=== PATIENT | male | born 1990 | race American Indian/Alaskan Native ===

== ENCOUNTER 2017-12-06 16:08 | Emergency (ER) | payer MEDICAID ==
[2017-12-06 16:17] VITALS: PULSE 58; RESP 17; TEMP 98.2; O2SAT 97
[2017-12-06] MEDS ORDERED: Bacitracin OINT 15GM TOP STA (16:23)
--- NOTE | 2017-12-06 17:14 | ED PDOC ---
Upper Extremity Pain/Injury Time Seen by Provider: 12/06/17 16:14 Chief Complaint (Nursing): Upper Extremity Problem/Injury Chief Complaint (Provider): Left hand wound History Per: Patient History/Exam Limitations: no limitations Onset/Duration Of Symptoms: Mins (prior to arrival) Current Symptoms Are (Timing): Still Present Additional Complaint(s): 27 year old male presents to the emergency department complaining of a wound on his left hand, which occurred prior to arrival. He states that earlier today he poked himself with a knife on his left hand trying to open a bottle, and after feeling pain to his thumb and index finger, came into the ED. Patient denies being up to date with tetanus shot. PMD: none provided Past Medical History Reviewed: Historical Data, Nursing Documentation, Vital Signs Vital Signs: Last Vital Signs Temp 98.2 F 12/06/17 16:12 Pulse 58 L 12/06/17 16:12 Resp 17 12/06/17 16:12 BP Pulse Ox 97 12/06/17 16:12 - Medical History PMH: Asthma - Surgical History Surgical History: Hernia Repair Other surgeries: adenoidectomy - Family History Family History: States: Unknown Family Hx - Social History Current smoker - smoking cessation education provided: No Alcohol: Social Drugs: Denies - Home Medications Home Medications: Ambulatory Orders Medication Instructions Recorded traMADol [Ultram] 50 mg PO TID PRN #12 tab 02/19/16 - Allergies Allergies/Adverse Reactions: Allergies Allergy/AdvReac Type Severity Reaction Status Date / Time banana Allergy mouth Verified 02/18/16 17:02 pilling briggs Allergy SWELLING Verified 02/18/16 17:02 shellfish derived Allergy SWELLING Verified 02/18/16 17:02 FISH AdvReac SWELLING Verified 02/18/16 17:02 Review of Systems ROS Statement: Except As Marked, All Systems Reviewed And Found Negative Musculoskeletal: Positive for: Hand Pain (left handed knife wound, pain in thumb and index finger) Physical Exam - Reviewed Nursing Documentation Reviewed: Yes Vital Signs Reviewed: Yes - Physical Exam Extremity: Positive for: Normal ROM (actively of all fingers on left hand), Other (Small superficial puncture wound on first interdigital web space with no bleeding) - ECG O2 Sat by Pulse Oximetry: 97 (RA) Pulse Ox Interpretation: Normal Medical Decision Making Medical Decision Making: Initial Impression: puncture wound Time: 16:23 Initial Plan: --Bacitracin Ointment 1 application TOP 16:30 Tetanus shot is not up to date, but refused booster despite being given the risks. Pt accepts risks. Wound was irrigated and cleansed. Scribe Attestation: Documented by Olga Hogue, acting as a scribe for Romero Ascencio PA-C Provider Scribe Attestation: All medical entries made by the Scribe were at my direction and personally dictated by me. I have reviewed the chart and agree that the record accurately reflects my personal performance of the history, physical exam, medical decision making, and the department course for this patient. I have also personally directed, reviewed, and agree with the discharge instructions and disposition. Disposition - Clinical Impression Clinical Impression: Puncture wound - Patient ED Disposition Is Patient to be Admitted: No - Disposition Referrals: [facility] [place] [Outside] [facility] [Outside] Disposition: Routine/Home Disposition Time: 16:30 Condition: STABLE Additional Instructions: Follow up with [facility] for further evaluation Return to ED immediately if symptoms worsen Instructions: Wound Care (DC) Forms: to be (Canadian) Print Language: SERBIAN
== END 2017-12-06 16:45 | disposition home or self-care (01) ==
LOC: H.ER 16:08
DX: S61.012A Laceration without foreign body of left thumb without damage to nail, initial encounter (principal); W26.0XXA Contact with knife, initial encounter; Y92.89 Other specified places as the place of occurrence of the external cause

== ENCOUNTER 2018-03-06 12:41 | Emergency (ER) | payer MEDICAID, OTHER ==
[2018-03-06] MEDS ORDERED: Sodium Chloride 0.9% 1,000 ML IV STA (13:16)
--- NOTE | 2018-03-06 13:21 | ED PDOC ---
HPI: Abdomen Time Seen by Provider: 03/06/18 12:56 Chief Complaint (Nursing): Abdominal Pain Chief Complaint (Provider): Abdominal pain History Per: Patient History/Exam Limitations: no limitations Additional Complaint(s): Pt reports sharp lower abdominal pain X 1 day, associated with L testicular pain and difficulty urinating. Denies fever, nausea, vomiting, constipation, diarrhea, hematuria, penile discharge. Past Medical History Reviewed: Nursing Documentation, Vital Signs Vital Signs: Last Vital Signs Temp 97.2 F L 03/06/18 17:37 Pulse 70 03/06/18 17:37 Resp 16 03/06/18 17:37 BP 120/71 03/06/18 17:37 Pulse Ox 99 03/06/18 17:37 - Medical History PMH: Asthma - Surgical History Surgical History: Hernia Repair - Family History Family History: States: Unknown Family Hx - Social History Current smoker - smoking cessation education provided: No Alcohol: None - Home Medications Home Medications: Ambulatory Orders Medication Instructions Recorded traMADol [Ultram] 50 mg PO TID PRN #12 tab 02/19/16 Naproxen [Naprosyn] 500 mg PO BID PRN #15 tablet 03/06/18 - Allergies Allergies/Adverse Reactions: Allergies Allergy/AdvReac Type Severity Reaction Status Date / Time banana Allergy mouth Verified 02/18/16 17:02 pilling briggs Allergy SWELLING Verified 02/18/16 17:02 shellfish derived Allergy SWELLING Verified 02/18/16 17:02 FISH AdvReac SWELLING Verified 02/18/16 17:02 Review of Systems Constitutional: Negative for: Fever, Chills Cardiovascular: Negative for: Chest Pain, Palpitations Respiratory: Negative for: Cough, Shortness of Breath Gastrointestinal: Positive for: Abdominal Pain. Negative for: Nausea, Vomiting , Diarrhea, Constipation Genitourinary Male: Positive for: Scrotal Pain. Negative for: Dysuria, Frequency, Incontinence, Hematuria, Penile Discharge, Penile Pain Musculoskeletal: Negative for: Neck Pain, Back Pain Skin: Negative for: Rash, Lesions Neurological: Negative for: Headache Physical Exam - Reviewed Nursing Documentation Reviewed: Yes Vital Signs Reviewed: Yes - Physical Exam Appears: Positive for: Uncomfortable Head Exam: Positive for: ATRAUMATIC, NORMAL INSPECTION Skin: Positive for: Normal Color, Warm, Dry Eye Exam: Positive for: Normal appearance, EOMI, PERRL Cardiovascular/Chest: Positive for: Regular Rate, Rhythm Respiratory: Positive for: Normal Breath Sounds Gastrointestinal/Abdominal: Positive for: Bowel Sounds, Soft, Tenderness (LLQ), Guarding. Negative for: Distended, Rebound Male Genital Exam: Positive for: testicular tenderness (L), other (Photo Finish Photographer: Toyin RAE). Negative for: bleeding, erythema, lesions, testicular tenderness (R), urethral discharge Extremity: Positive for: Normal ROM Neurologic/Psych: Positive for: Alert, Oriented - Laboratory Results Result Diagrams: 03/06/18 13:25 03/06/18 13:25 - ECG O2 Sat by Pulse Oximetry: 98 Medical Decision Making Medical Decision Makin yo male with LLQ?L testicular pain. - labs - CT abd/pelvis - testicular ultrasound - IVF - Morphine Accession No. : [id number] Patient Name / ID : HE CARREON / [id number] Exam Date : 03/06/2018 14:30:08 ( Approved ) Study Comment : Sex / Age : M / 27Y Creator : Jf Martinez MD Dictator : Jf Martinez MD Machine Overhauler : Vacuum Filter Operator : Jf Martinez MD Approver2 : Report Date : 03/06/2018 15:10:38 My Comment : Date of service: 03/06/2018 HISTORY: L testicular pain TECHNIQUE: Realtime sonography through the scrotum with color and doppler flow. COMPARISON: None Available. FINDINGS: RIGHT TESTICLE: Measures 3.6 x 2.3 x 1.9 cm. Normal echotexture and flow. Multiple punctate calcifications. RIGHT EPIDIDYMIS: Epididymal head measures 0.8 x 0.8 x 0.8 cm. Grossly unremarkable appearance with normal flow. LEFT TESTICLE: Measures 4.4 x 2.9 x 2.1 cm. Normal echotexture and flow. Multiple punctate calcifications. LEFT EPIDIDYMIS: Epididymal head measures 1.1 x 1.1 x 0.8 cm. Grossly unremarkable appearance with normal flow. HYDROCELE: None. VARICOCELE: None. OTHER FINDINGS: None. IMPRESSION: No evidence of testicular torsion. Symmetric bilateral Doppler flow. Bilateral testicular microlithiasis. Accession No. : [id number] Patient Name / ID : HE CARREON / [id number] Exam Date : 03/06/2018 16:32:25 ( Approved ) Study Comment : Sex / Age : M / 27Y Creator : Jf Martinez MD Dictator : Jf Martinez MD Machine Overhauler : Vacuum Filter Operator : Jf Martinez MD Approver2 : Report Date : 03/06/2018 16:56:45 My Comment : Date of service: 03/06/2018 PROCEDURE: CT Abdomen and Pelvis without intravenous contrast HISTORY: LLQ pain, testicular pain COMPARISON: None. TECHNIQUE: Contiguous images were obtained from the domes of the diaphragms to the upper thighs without the administration of intravenous contrast. Oral contrast was not administered. Radiation dose: Total exam DLP = 466.9 mGy-cm. This CT exam was performed using one or more of the following dose reduction techniques: Automated exposure control, adjustment of the mA and/or kV according to patient size, and/or use of iterative reconstruction technique. FINDINGS: LOWER THORAX: Unremarkable. LIVER: Unremarkable. No gross lesion or ductal dilatation. GALLBLADDER AND BILE DUCTS: Unremarkable. PANCREAS: Unremarkable. No gross lesion or ductal dilatation. SPLEEN: Unremarkable. ADRENALS: Unremarkable. No mass. KIDNEYS AND URETERS: Distension of the left renal collecting system and ureter. No hydronephrosis. No solid mass. VASCULATURE: Unremarkable. No aortic aneurysm. BOWEL: Unremarkable. No obstruction. No gross mural thickening. APPENDIX: Unremarkable. Normal appendix. PERITONEUM: Unremarkable. No free fluid. No free air. LYMPH NODES: Unremarkable. No enlarged lymph nodes. BLADDER: 3 mm calculus in the dependent bladder, slightly to the left. REPRODUCTIVE: Unremarkable. BONES: No acute fracture. OTHER FINDINGS: None. IMPRESSION: 3 mm calculus in the dependent bladder, slightly distal left with mild distention of the left renal collecting system and ureter compatible with recently passed calculus. Disposition - Clinical Impression Clinical Impression: Ureteral calculus - Disposition Referrals: [facility] [Outside] Rayna Do MD [Medical Doctor] - Disposition: Routine/Home Disposition Time: 17:01 Condition: STABLE Prescriptions: Naproxen [Naprosyn] 500 mg PO BID PRN #15 tablet PRN Reason: Pain, Moderate (4-7) Instructions: Kidney Stones in Adults, Renal Colic Forms: [facility] (Lithuanian)
[2018-03-06 13:40] LABS: BASO % 0.6 % (0.0-2.0); EOS # 0.8 K/uL (0.0-0.7); EOS % 13.2 % (0.0-4.0); HEMOGLOBIN 14.3 g/dL (12.0-18.0); LYMPH # 2.2 K/uL (1.0-4.3); LYMPH % 34.7 % (20.0-40.0); MEAN CELL VOLUME 84.7 fl (80.0-94.0); MEAN CORPUSCULAR HEMOGLOBIN 27.9 pg (27.0-31.0); MEAN PLATELET VOLUME 7.5 fl (7.2-11.7); MONO # 0.3 K/uL (0.0-0.8); MONO % 5.4 % (0.0-10.0); NEUT # 2.9 K/uL (1.8-7.0); NEUT % 46.1 % (50.0-75.0); NRBC % 0.1 % (0.0-0.0); RBC 5.11 Mil/uL (4.40-5.90); RED CELL DISTRIBUTION WIDTH 14.2 % (11.5-14.5); WHITE BLOOD COUNT 6.4 K/uL (4.8-10.8)
[2018-03-06 13:46] LABS: INR 1.1; PROTHROMBIN TIME 12.1 Seconds (9.8-13.1)
[2018-03-06 13:48] LABS: PARTIAL THROMBOPLASTIN TIME 27.7 Seconds (25.6-37.1)
[2018-03-06 13:49] LABS: ALB/GLOB RATIO 1.3 (1.0-2.1); ALBUMIN 4.2 g/dL (3.5-5.0); ALT/SGPT 26 U/L (21-72); AST/SGOT 21 U/L (17-59); BLOOD UREA NITROGEN 13 mg/dl (9-20); CALCIUM 9.6 mg/dL (8.4-10.2); GFR AFRICAN-AMERICAN > 60; GFR NON-AFRICAN AMERICAN > 60
[2018-03-06] MEDS ORDERED: Iohexol 300 100 ML IJ ONE (14:08)
[2018-03-06] MEDS ORDERED: Sodium Chloride 0.9% 50 ML IV ONE (14:08)
[2018-03-06 14:42] LABS: URINE BACTERIA RARE (<OCC); URINE BILIRUBIN NEGATIVE (NEGATIVE); URINE BLOOD LARGE (NEGATIVE); URINE CALCIUM OXALATE CRYSTALS RARE /hpf (<OCC); URINE CLARITY SLIGHTY-CLOUDY (Clear); URINE COLOR YELLOW (YELLOW); URINE GLUCOSE (UA) NEG (Normal); URINE LEUKOCYTE ESTERASE NEG Leu/uL (Negative); URINE PROTEIN 30 mg/dL (NEGATIVE); URINE UROBILINOGEN 0.2-1.0 mg/dL (0.2-1.0)
--- NOTE | 2018-03-06 15:11 | US ---
Date of service: 03/06/2018 HISTORY: L testicular pain TECHNIQUE: Realtime sonography through the scrotum with color and doppler flow. COMPARISON: None Available. FINDINGS: RIGHT TESTICLE: Measures 3.6 x 2.3 x 1.9 cm. Normal echotexture and flow. Multiple punctate calcifications. RIGHT EPIDIDYMIS: Epididymal head measures 0.8 x 0.8 x 0.8 cm. Grossly unremarkable appearance with normal flow. LEFT TESTICLE: Measures 4.4 x 2.9 x 2.1 cm. Normal echotexture and flow. Multiple punctate calcifications. LEFT EPIDIDYMIS: Epididymal head measures 1.1 x 1.1 x 0.8 cm. Grossly unremarkable appearance with normal flow. HYDROCELE: None. VARICOCELE: None. OTHER FINDINGS: None. IMPRESSION: No evidence of testicular torsion. Symmetric bilateral Doppler flow. Bilateral testicular microlithiasis.
--- NOTE | 2018-03-06 16:58 | CT ---
Date of service: 03/06/2018 PROCEDURE: CT Abdomen and Pelvis without intravenous contrast HISTORY: LLQ pain, testicular pain COMPARISON: None. TECHNIQUE: Contiguous images were obtained from the domes of the diaphragms to the upper thighs without the administration of intravenous contrast. Oral contrast was not administered. Radiation dose: Total exam DLP = 466.9 mGy-cm. This CT exam was performed using one or more of the following dose reduction techniques: Automated exposure control, adjustment of the mA and/or kV according to patient size, and/or use of iterative reconstruction technique. FINDINGS: LOWER THORAX: Unremarkable. LIVER: Unremarkable. No gross lesion or ductal dilatation. GALLBLADDER AND BILE DUCTS: Unremarkable. PANCREAS: Unremarkable. No gross lesion or ductal dilatation. SPLEEN: Unremarkable. ADRENALS: Unremarkable. No mass. KIDNEYS AND URETERS: Distension of the left renal collecting system and ureter. No hydronephrosis. No solid mass. VASCULATURE: Unremarkable. No aortic aneurysm. BOWEL: Unremarkable. No obstruction. No gross mural thickening. APPENDIX: Unremarkable. Normal appendix. PERITONEUM: Unremarkable. No free fluid. No free air. LYMPH NODES: Unremarkable. No enlarged lymph nodes. BLADDER: 3 mm calculus in the dependent bladder, slightly to the left. REPRODUCTIVE: Unremarkable. BONES: No acute fracture. OTHER FINDINGS: None. IMPRESSION: 3 mm calculus in the dependent bladder, slightly distal left with mild distention of the left renal collecting system and ureter compatible with recently passed calculus.
[2018-03-06 17:39] VITALS: BP 120/71; PULSE 70; RESP 16; TEMP 97.2
[2018-03-07 15:30] VITALS: O2SAT 98
== END 2018-03-06 17:40 | disposition short-term general hospital (02) ==
LOC: H.ER 12:41
DX: N20.1 Calculus of ureter (principal); J45.909 Unspecified asthma, uncomplicated
CPT/HCPCS: 74176; 80053; 81003; 85025; 85610; 85730; 93975; 99283; J2270; J7030